=== PATIENT | female | born 1955 | race Caucasian/White ===

== ENCOUNTER → 2016-08-13 | Outpatient (CLI) | payer OTHER ==
[~2016-08-13] MED LIST: ASPIRIN PO; AVANDIA; AVANDIA PO; CIPRO PO; COUMADIN; CRESTOR; CRESTOR PO; GLUCOPHAGE XR500 MG; HUMALOG MIX 75/10 ML; HUMALOG MIX 75/10 ML SUBQ; IMDUR; IMDUR PO; KCL; KCL PO; LANOXIN; LANOXIN PO; LASIX PO; LISINOPRIL; LISINOPRIL PO; LOPRESSOR; LOPRESSOR PO; METFORMIN PO; PERCOCET10 PO; PERCOCET7.5 PO; PLAVIX PO; PRILOSEC PO; VITAMIN D 4001 UDTAB PO; ZITHROMAX PO
== END | disposition home or self-care (01) ==
LOC: CLAB 15:07
DX: Z51.81 Encounter for therapeutic drug level monitoring (principal); Z79.899 Other long term (current) drug therapy
CPT/HCPCS: 36415; 80162